=== PATIENT | male | born 1975 | race Two or more races ===

== ENCOUNTER 2021-11-02 08:24 | Outpatient (REF) | payer OTHER, SELFPAY ==
[2021-11-02 08:45] LABS: MANUAL DIFF FLAG NO
[2021-11-02 09:00] LABS: Basophils Absolute Auto 0.1 X10*3/uL (0.0-0.2); Basophils Percent Auto 0.7 % (0-2); Eosinophils Absolute Auto 0.1 X10*3/uL (0.0-0.4); Eosinophils Percent Auto 1.9 % (0-4); Hematocrit 42.4 % (42.0-52.0); Hemoglobin 13.4 g/dl (14.0-18.0); Imm Gran Abs Auto 0.02 X10*3/uL (0.00-0.03); Imm Gran Pct Auto 0.3 % (0.0-0.4); Lymphocytes Percent Auto 29.3 % (20-40); Mean Corpuscular HGB Conc 31.6 g/dl (31.0-36.0); Mean Corpuscular Hemoglobin 26.5 pg (27.0-33.0); Mean Corpuscular Volume 83.8 fL (80.0-98.0); Mean Platelet Volume 9.8 fL (9.4-12.4); Monocytes Absolute Auto 0.8 X10*3/uL (0.1-1.2); Monocytes Percent Auto 12.1 % (2-11); Neutrophils Absolute Auto 3.9 x10*3/uL (2.0-8.3); Neutrophils Percent Auto 55.7 % (45-73); Platelet Count 234 X10*3/uL (160-400); Red Blood Count 5.06 X10*6/uL (4.60-5.80)
[2021-11-02 09:33] LABS: Alanine Aminotransferase 37 U/L (0-40); Albumin Level 4.7 g/dL (3.5-5.0); Alkaline Phosphatase 77 U/L (39-117); Anion Gap 14 (12-20); Aspartate Amino Transferase 21 U/L (5-37); Bilirubin Total 1.5 mg/dL (0.0-1.0); Blood Urea Nitrogen 17 mg/dL (9-16); Calcium 9.6 mg/dL (8.4-10.2); Carbon Dioxide 27 mmol/L (22-29); Chloride 103 mmol/L (96-108); Cholesterol 204 mg/dL; Estimated Glomerular Filt Rate > 60; Glucose Fasting 97 mg/dL (60-99); HDL Cholesterol 36 mg/dL; LDL Cholesterol Calculated 133 mg/dl; Potassium 4.3 mmol/L (3.3-5.1); Sodium 140 mmol/L (135-145); Total Protein 7.9 g/dL (6.5-8.0); Triglycerides 178 mg/dL
[2021-11-02 09:58] LABS: TSH reflex Free T4 1.93 uIU/mL (0.32-4.0); Vitamin D 25-OH Total 19.2 ng/mL (>30)
== END 2021-11-02 08:25 | disposition home or self-care (01) ==
LOC: HO.LAB 08:24
PROVIDERS: PCP Internal Medicine; Visit Provider Internal Medicine
DX: Z00.00 Encounter for general adult medical examination without abnormal findings (principal); E55.9 Vitamin D deficiency, unspecified
CPT/HCPCS: 36415; 80053; 80061; 82306; 84443; 85025

== ENCOUNTER 2021-11-29 11:36 | Outpatient (REF) | payer OTHER, SELFPAY ==
--- NOTE | ~2021-11-29 | US_ITS ---
EXAMINATION: US THYROID CLINICAL INFORMATION: Nontoxic single thyroid nodule. COMPARISON: None TECHNIQUE: Linear transducer grayscale and color Doppler examination with attention to the region of the thyroid. FINDINGS: SIZE: Measurements of the thyroid lobes and nodules are given in sagittal, anteroposterior and transverse dimensions respectively. Right Thyroid Lobe: 3.5 x 1.2 x 1.6 cm, volume 3.5 mL. Parenchyma: The gland echotexture is homogeneous. Thyroid vascularity is normal. Left Thyroid Lobe: 3.2 x 1.2 x 1.7 cm, volume 3.4 mL. Parenchyma: The gland echotexture is homogeneous. Thyroid vascularity is normal. Isthmus: 0.3 cm in maximum AP dimension. Estimated total number of nodules greater than or equal to 1 cm: 0. [place] nodules are described as follows: 1. Location: Right superior. Size: 0.2 x 0.2 x 0.1 cm, volume 0.003 mL. Nodule characteristics: Composition: Mixed cystic and solid (1). Echogenicity: Isoechoic (1). Shape: Not taller than wide (0). Margins: Smooth (0). Echogenic Foci: None (0). ACR TI-RADS total points: 2 ACR TI-RADS category: 2 NODES: No lymphadenopathy is seen in the tissue surrounding the thyroid gland. US/US thyroid IMPRESSION: Small thyroid gland. Small right thyroid nodule. ACR TI-RADS RECOMMENDATION REFERENCE: Ultrasound-guided fine-needle aspiration, followup ultrasound, no further follow up. * TR1 (0 point) and TR 2 (2 points): No FNA or follow up * TR3 (3 points): FNA if more than or equal to 2.5 cm in maximum dimension, followup ultrasound in 1, 3 and 5 years if 1.5 to 2.4 cm in maximum dimension. * TR4 (4-6 points): FNA if more than or equal to 1.5 cm in maximum dimension, followup ultrasound in 1, 2, 3 and 5 years if 1 to 1.4 cm in maximum dimension. * TR5 (more than or equal to 7 points): FNA if more than or equal to 1 cm in maximum dimension, followup ultrasound every year for 5 years if 0.5 to 0.9 cm in maximum dimension. * TR3, TR4 or TR5 nodules that are below the size threshold for follow up receive no follow up.
== END 2021-11-29 11:37 | disposition home or self-care (01) ==
LOC: HO.US 11:36
PROVIDERS: Visit Provider Internal Medicine
DX: E04.1 Nontoxic single thyroid nodule (principal)
CPT/HCPCS: 76536

== ENCOUNTER 2022-09-09 11:34 | Outpatient (REF) | payer OTHER, SELFPAY ==
[2022-09-09 11:44] LABS: MANUAL DIFF FLAG NO
[2022-09-09 12:17] LABS: Basophils Percent Auto 0.4 % (0-2); Eosinophils Absolute Auto 0.1 X10*3/uL (0.0-0.4); Eosinophils Percent Auto 1.5 % (0-4); Hematocrit 46.3 % (42.0-52.0); Hemoglobin 14.7 g/dl (14.0-18.0); Imm Gran Abs Auto 0.03 X10*3/uL (0.00-0.03); Imm Gran Pct Auto 0.4 % (0.0-0.4); Lymphocytes Absolute Auto 1.9 X10*3/uL (1.2-4.9); Lymphocytes Percent Auto 28.2 % (20-40); Mean Corpuscular HGB Conc 31.7 g/dl (31.0-36.0); Mean Corpuscular Hemoglobin 26.7 pg (27.0-33.0); Mean Platelet Volume 10.2 fL (9.4-12.4); Monocytes Absolute Auto 0.7 X10*3/uL (0.1-1.2); Monocytes Percent Auto 10.6 % (2-11); Neutrophils Percent Auto 58.9 % (45-73); Platelet Count 230 X10*3/uL (160-400); Red Blood Count 5.51 X10*6/uL (4.60-5.80); Red Cell Distribution Width 13.9 % (11.0-16.0); White Blood Count 6.9 X10*3/uL (4.8-10.8)
[2022-09-09 12:52] LABS: Alanine Aminotransferase 30 U/L (0-40); Albumin Level 4.8 g/dL (3.5-5.0); Alkaline Phosphatase 79 U/L (39-117); Anion Gap 10 (12-20); Aspartate Amino Transferase 20 U/L (5-37); Bilirubin Total 1.4 mg/dL (0.0-1.0); Blood Urea Nitrogen 19 mg/dL (9-16); Calcium 10.4 mg/dL (8.4-10.2); Carbon Dioxide 29 mmol/L (22-29); Chloride 105 mmol/L (96-108); Cholesterol 195 mg/dL; Estimated Glomerular Filt Rate > 60; Glucose Fasting 96 mg/dL (60-99); HDL Cholesterol 36 mg/dL; LDL Cholesterol Calculated 125 mg/dl; Sodium 139 mmol/L (135-145); Total Protein 8.4 g/dL (6.5-8.0); Triglycerides 172 mg/dL
[2022-09-09 13:09] LABS: TSH reflex Free T4 1.51 uIU/mL (0.32-4.0); Vitamin D 25-OH Total 40.7 ng/mL (>30)
== END 2022-09-09 11:35 | disposition home or self-care (01) ==
LOC: HO.LAB 11:34
PROVIDERS: PCP Internal Medicine; Visit Provider Internal Medicine
DX: Z00.00 Encounter for general adult medical examination without abnormal findings (principal); E55.9 Vitamin D deficiency, unspecified; E04.1 Nontoxic single thyroid nodule; E78.2 Mixed hyperlipidemia
CPT/HCPCS: 36415; 80053; 80061; 82306; 84443; 85025

== ENCOUNTER 2022-09-12 12:35 | Outpatient (REF) | payer OTHER, SELFPAY ==
[2022-09-12 13:18] LABS: Appearance Urine Turbid; Color Urine Yellow; Glucose Urine UA Negative (Negative); Leukocyte Esterase Urine Negative (Negative); Nitrite Urine Negative (Negative); PH 5.5 (5.0-9.0); Specific Gravity - Urine 1.025 (1.005-1.025); Urine Blood Negative (Negative); Urine Ketones Negative (Negative); Urine Protein Negative (Neg-Trace)
== END 2022-09-12 12:36 | disposition home or self-care (01) ==
LOC: HO.LNP 12:35
PROVIDERS: Visit Provider Internal Medicine
DX: Z00.00 Encounter for general adult medical examination without abnormal findings (principal); R30.0 Dysuria
CPT/HCPCS: 81003

== ENCOUNTER → 2022-12-30 08:30 | Outpatient (BNVA) | payer OTHER, SELFPAY | PROVIDERS: PCP Internal Medicine; Visit Provider Nurse Practitioner Family ==

== ENCOUNTER 2023-03-17 10:27 | Outpatient (AMB) | payer OTHER, SELFPAY ==
[2023-03-17 10:30] VITALS: BP 140/86; PULSE 67; O2SAT 97; BMI 27.4
--- NOTE | 2023-03-17 10:30 | A.OFFPC_ITS ---
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 Accompanied by: Self / Same As Patient Allergies No Known Drug Allergies Allergy (Unknown, Verified 03/17/23 11:28) Unknown Medication List - Last Reconciled 03/17/23 by Paul Floyd MD bisacodyl (Dulcolax (bisacodyl)) 10 mg (2 x 5 mg) PO ONCE 1 day cholecalciferol (vitamin D3) 25 mcg PO DAILY 90 days polyethylene glycol 3350 (Miralax) 238 grams PO ONCE Tobacco use date assessed: 03/17/23 Dental Screening Dental Screen Date: 03/17/23 Did you have a dental visit in the last 12 months?: Yes Did you have a dental problem in the last 6 months where you did not have access to dental care?: No Was dental information given to patient?: Patient has dentist HPI 6 month f/u HPI Details Patient comes in today for his follow up visit States that he feels okay He denies any headaches or dizziness Denies any chest pains, no SOB No nausea/vomiting, no abdominal pain No change in bowel habits noted States that he is scheduled for his screening colonoscopy on 05/08/2023 Would like to know how he did on his labs [facility] Medical History Mixed hyperlipidemia Vitamin D deficiency Surgical History No pertinent past surgical history Family History Father No problems noted. Mother Diabetes Social History Housing: Apartment Alcohol intake: never Patient Tobacco Use Status: Never used Tobacco e-Cigarette/Vaping Use: Never Used Second Hand Smoke Exposure: No service: No Current occupational status: disabled Cognitive needs: No Hearing needs: No Vision needs: Yes Questionnaire PHQ-9 Over the last 2 weeks, how often have you been bothered by any of the following problems? 1. Little interest or pleasure in doing things: not at all 2. Feeling down, depressed, or hopeless: not at all 3. Trouble falling or staying asleep, or sleeping too much: not at all 4. Feeling tired or having little energy: not at all 5. Poor appetite or overeating: not at all 6. Feeling bad about yourself - or that you are a failure or have let yourself or your family down: not at all 7. Trouble concentrating on things, such as reading the newspaper or watching television: not at all 8. Moving or speaking so slowly that other people could have noticed. Or the opposite - being so fidgety or restless that you have been moving around a lot more than usual: not at all 9. Thoughts that you would be better off or of hurting yourself in some way: not at all Total score: 0 Depression Screening Interpretation: Negative Depression Screening Done: Yes 85209 - PHQ-9 Billing: Yes Source: Developed by Drs. Renaldo Schuster, Katy Tobin, Dominic Monique and colleagues, with an educational henrique from [employer]. Thrive Questionnaire Date Thrive assessed: 03/17/23 I am a: Patient What is your living situation today?: I have a steady place to live Within the past 12 months, did the food you bought not last and you didn't have the money to get more?: Never true Within the past 12 months, did you worry whether your food would run out before you got money to buy more?: Never true Do you have trouble paying for medicines?: No Do you have trouble getting transportation to medical appointments?: No Do you have trouble paying your heating and electricity bill?: No Do you have trouble taking care of your child, family member or friend?: No Do you have trouble with day-to-day activities such as bathing, preparing meals, shopping, managing finances, etc.?: No Are you currently unemployed and looking for a job?: No Are you interested in more education?: No Please select the resources that you would like help with: None Currently or been in a relationship where the following occur: no concerns reported AUDIT C Alcohol Use Questionnaire (AUDIT-C) 1. How often do you have a drink containing alcohol?: Never 3. How often do you have six or more drinks on one occasion?: Never Total Score: 0 Score Reviewed/Action Taken: Yes ALLNA-7 AMB Questionnaire ALLAN-7 Date ALLAN - 7 assessed: 03/17/23 Feeling nervous, anxious, or on edge: 0 = Not at all Not being able to stop or control worryin = Not at all Worrying too much about different things: 0 = Not at all Trouble relaxin = Not at all Being so restless that it is hard to sit still: 0 = Not at all Becoming easily annoyed or irritable: 0 = Not at all Feeling afraid as if something awful might happen: 0 = Not at all Total ALLAN-7 score (0-4 normal; 5-9 mild; 10-14 moderate; 15-21 severe): 0 Source: Developed by Drs. Renaldo Schuster, Katy Tobin, Dominic Monique and colleagues, with an educational henrique from [employer]. Review of Systems Const Denies chills, Denies fatigue, Denies fever(s) and Denies headache(s) ENT Denies dysphagia, Denies dizziness, Denies otalgia, Denies headache(s), Denies neck pain, Denies odynophagia and Denies sore throat Card Denies chest pain, Denies palpitations and Denies dyspnea Resp Denies cough and Denies dyspnea GI Denies abdominal pain, Denies constipation, Denies dysphagia, Denies heartburn, Denies diarrhea, Denies nausea, Denies odynophagia and Denies vomiting Denies dysuria, Denies nocturia and Denies urinary frequency Musc Denies neck pain Skin/Breast Denies rash Neuro Denies dizziness and Denies headache(s) Endo Denies fatigue and Denies palpitations Physical exam (Primary Care) Vital Signs: Last Vital Signs Pulse 67 03/17/23 10:30 BP 140/86 H 03/17/23 10:30 Pulse Ox 97 03/17/23 10:30 Oxygen Delivery Method Room Air 03/17/23 10:30 BMI result Body Mass Index 27.4 Tobacco/Smoking Status: Tobacco use Status Tobacco use date assessed 03/17/23 03/17/23 10:35 Patient Tobacco Use Status Never used Tobacco 03/17/23 10:35 e-Cigarette/Vaping Use Never Used 03/17/23 10:35 PHQ-9: PHQ-9 Score PHQ-9: Total score 0 03/17/23 10:35 Depression Screening Interpretation: Negative Thrive Assessment: Date of Thrive Assessment Date Thrive assessed 03/17/23 03/17/23 10:35 Currently or been in a relationship where the following occur: no concerns reported Const General: no acute distress and alert HENMT Ears: TM's normal bilaterally and EAC's normal Neck Neck: Yes no lymphadenopathy and Yes supple Resp Auscultation: clear to auscultation bilaterally, no rales and no wheezes Cardio Rate: regular rate Rhythm: regular rhythm Heart sounds: no murmurs GI Palpation (GI): Soft to palpation, nontender and No hepatosplenomegaly present Extrem General: Yes no clubbing, cyanosis or edema Results Reviewed Results Reviewed: Laboratory Tests 09/09/22 09/12/22 11:42 09:10 WBC 6.9 Hgb 14.7 Hct 46.3 Plt Count 230 Sodium 139 Potassium 5.0 Creatinine 1.10 Estimated GFR > 60 Fasting Glucose 96 Calcium 10.4 H D Total Bilirubin 1.4 H AST 20 ALT 30 Triglycerides 172 Cholesterol 195 LDL Cholesterol, Calc 125 HDL Cholesterol 36 25-OH Vitamin D Total 40.7 TSH 1.51 Ur Specific [place] 1.025 Urine Protein Negative Urine Glucose (UA) Negative Urine Blood Negative Assessment and Plan Assessment & Plan (1) Mixed hyperlipidemia: Code(s): E78.2 - Mixed hyperlipidemia Plan: Results of his labs done back in September 2022 reviewed and discussed with patient Reinforced low cholesterol diet Will recheck his labs and fasting lipids in 6 months for follow up (2) Vitamin D deficiency: Code(s): E55.9 - Vitamin D deficiency, unspecified Plan: Continue Vitamin D3 1000 units QD (3) Elevated blood pressure reading: Code(s): R03.0 - Elevated blood-pressure reading, without diagnosis of hypertension Plan: Most likely situational Repeat blood pressure during his office visit today came back normal at 110/86 mm Patient is advised to check his blood pressure every now and then to ensure that it stays normal Discussed also low sodium diet to help keep his BP in check (4) Right thyroid nodule: Code(s): E04.1 - Nontoxic single thyroid nodule Plan: Thyroid US done in November 2021 showed (+) small right thyroid nodule with no abnormalities TFTs were normal back then and were again normal on his labs done in September 2022 Will consider repeat thyroid US if nodule increases in size and becomes more palpable (5) Overweight (BMI 25.0-29.9): Code(s): E66.3 - Overweight Plan: Reinforced diet/exercise as tolerated/lose weight Plan To return in 6 months for his next annual physical examination Orders: Orders Complete Blood Count Auto Diff 6 Months Z00.00 - Encounter for general adult medical examination without abnormal findings TSH reflex Free T4 6 Months E78.00 - Pure hypercholesterolemia, unspecified UA CC w/rflx Micro + Cult 6 Months R30.0 - Dysuria Comprehensive [place]. Panel Fast 6 Months E78.00 - Pure hypercholesterolemia, unspecified, Z00.00 - Encounter for general adult medical examination without abnormal findings Lipid Panel 6 Months E78.2 - Mixed hyperlipidemia, Z00.00 - Encounter for general adult medical examination without abnormal findings Vitamin D 25-OH Total 6 Months E55.9 - Vitamin D deficiency, unspecified Coding Level of Care Code Est Pt Level 4 (82001) Diagnoses Mixed hyperlipidemia E78.2 Vitamin D deficiency E55.9 Elevated blood pressure reading R03.0 Right thyroid nodule E04.1 Overweight (BMI 25.0-29.9) E66.3
[2023-03-17 11:29] VITALS: BP 110/86
== END 2023-03-17 11:30 | disposition home or self-care (01) ==
PROVIDERS: PCP Internal Medicine; Visit Provider Internal Medicine
DX: E78.2 Mixed hyperlipidemia (principal); E55.9 Vitamin D deficiency, unspecified; R03.0 Elevated blood-pressure reading, without diagnosis of hypertension; E04.1 Nontoxic single thyroid nodule; E66.3 Overweight
CPT/HCPCS: 99214

== ENCOUNTER 2023-05-08 07:34 | Day surgery (SDC) | payer OTHER, SELFPAY ==
[2023-05-04 12:04] VITALS: BMI 26.3
--- NOTE | 2023-05-05 10:35 | P.CONAN_ITS ---
Documented by User: Caterina Ramsay NP 05/05/23 10:36 HPI - Anesthesia Eval Consult details Narrative: 48yo M for Colonoscopy PMFSH Active Problems Active Problems: All Active Problems (Updated 03/17/23 @ 11:37 by Paul Floyd MD) Elevated blood pressure reading (Acute) Colon cancer screening (Acute) Ear discomfort (Acute) Mixed hyperlipidemia (Acute) Vitamin D deficiency (Acute) Pure hypercholesterolemia (Acute) Overweight (BMI 25.0-29.9) (Acute) Annual physical exam (Acute) Right thyroid nodule (Acute) Past Medical History Medical History Mixed hyperlipidemia Vitamin D deficiency Family History Family History Father No problems noted. Mother Diabetes Surgical History Surgical History No pertinent past surgical history Social History Social History Housing: Apartment Alcohol intake: never Patient Tobacco Use Status: Never used Tobacco e-Cigarette/Vaping Use: Never Used Second Hand Smoke Exposure: No Use of substances other than those prescribed or required for medical reasons: No Are you DNR?: No Advance Directives: No Advance Directives Information Provided: Yes service: No Current occupational status: disabled Cognitive needs: No Hearing needs: No Vision needs: Yes Meds Allergies Allergy/AdvReac Type Severity Reaction Status Date / Time No Known Drug Allergies Allergy Unknown Unknown Verified 05/08/23 09:04 Home Medications Medication Instructions Recorded Confirmed Last Taken Type No Known Home Meds 05/08/23 05/08/23 Unknown History Exam Height,Weight and Vital Signs: Height 5 ft 10 in Weight 83.007 kg Assessment and Plan Assessment Anesthesia Assessment: Chart Reviewed Documented by User: Holley Lopez MD 05/08/23 09:09 [facility] Past Medical History Medical History Mixed hyperlipidemia Vitamin D deficiency Family History Family History Father No problems noted. Mother Diabetes Family history of problems with anesthesia: No Surgical History Surgical History No pertinent past surgical history History of Problems with Anesthesia: No Social History Social History Housing: Apartment Alcohol intake: never Patient Tobacco Use Status: Never used Tobacco e-Cigarette/Vaping Use: Never Used Second Hand Smoke Exposure: No Use of substances other than those prescribed or required for medical reasons: No Are you DNR?: No Advance Directives: No Advance Directives Information Provided: Yes service: No Current occupational status: disabled Cognitive needs: No Hearing needs: No Vision needs: Yes Meds Allergies Allergy/AdvReac Type Severity Reaction Status Date / Time No Known Drug Allergies Allergy Unknown Unknown Verified 05/08/23 09:04 Home Medications Medication Instructions Recorded Confirmed Last Taken Type No Known Home Meds 05/08/23 05/08/23 Unknown History Exam Airway Mallampati Class: II TM Dist: >3cm Neck ROM: Full Heart: rrr Lungs: cta Assessment and Plan Assessment Anesthesia Assessment: Anesthesia Plan Discussed Final Anesthetic Review Family History of Problems with Anesthesia: No History of Problems with Anesthesia: No NPO: Yes ASA Class: II Final Preanesthetic Review: No Changes in Pt Med Stat, Meds/Allgs Chart Reviewed and Consent Obtained/Reviewed Patient Risk: Intermediate Procedure Risk: Intermediate Anesthetic Plan Anesthetic Plan: MAC: Disposition: Standard PACU
--- NOTE | 2023-05-08 08:45 | MHC.SHP ---
Pre-Procedural Eval Section A - 24 Hr Update-Section A only Date of Service: 05/08/23 The patient is an INPATIENT: No The patient has been examined within 24 hours of the surgical procedure. The History & Physical has been completed within 30 days and I have reviewed it.: No Section B - Complete if H&P > 30 days Chief Complaint: Colon cancer screening Relevant Family History (Specify if Yes): No Relevant Social History: None Present Medications: see Short Stay Collaborative assessment Medical History: No relevant PMH (Mixed hyperlipidemia Vitamin D deficiency) History of Previous Operations: No relevant previous surgery Allergies: Allergies Allergy/AdvReac Type Severity Reaction Status Date / Time No Known Drug Allergies Allergy Unknown Unknown Verified 03/17/23 11:28 Review of Systems Sugical H&P ROS: Negative: Constitution, Cardiovascular and Gastrointestinal Exam Surgical H&P Exam: Normal: Heart, Normal: Lungs, Normal: Extremities and Normal: Abdomen Plan Diagnosis/Plan: Unchanged I have reviewed the history and physical and performed a pertinent physical examination on my patient. No changes have occurred unless specified. Time Spent With Patient Time: Total time managing care of this patient today ____ minutes.
[2023-05-08 09:03] VITALS: BP 133/86; PULSE 58; RESP 16; TEMP 36.4; O2SAT 100
[2023-05-08 09:05] VITALS: BMI 27.3
[2023-05-08] MEDS: Lactated Ringers 1,000 ML 100 ML IVCONT (09:05)
--- NOTE | 2023-05-08 09:16 | W.PM.OPN ---
Operative Note Operative Note Date of Service: 05/08/23 Narrative: COLONOSCOPY TILL CECUM WITH SNARE POLYPECTOMY Pre-op diagnosis: Colon cancer screening (1st colonoscopy) Post-op diagnosis:? Colon polyp, diverticulosis, hemorrhoid Endoscopist:? Ricky Whiteside MD Anesthesia:?MAC Consent: Indications for the procedure and potential complications of bleeding, perforation, reaction to medications and missed diagnosis were discussed with the patient and informed consent was obtained. Instrument: Olympus CF H 190 L variable stiffness adult colonoscope Monitoring: Vital signs and clinical assessment, intermittent blood pressure monitoring, continuous EKG monitoring, Pulse oximetry and Carbon Dioxide monitoring were done throughout the procedure. Please see anesthesia flowsheet. Colon withdrawl time was 15 minutes. Procedure: The patient was placed in the left lateral decubitis position and pre-procedure medications were administered. After a digital rectal examination of the ano-rectum, the video colonoscope was inserted into the rectum and advanced through the colon to the cecum. The colonoscope was slowly withdrawn in a retrograde panoramic fashion and the colon mucosa was carefully examined including a retroflexed view of the rectum. Findings and interventions are described below. Procedure Difficulty: Without difficulty Findings: Terminal Ileum: Not evaluated Cecum: Normal Ascending Colon: Normal Transverse Colon: Normal Descending Colon: Normal Sigmoid Colon: A 10-12 mm sessile polyp at 30 cms - removed with a hot snare. Moderate diverticulosis Rectum: Normal Ano-rectum: Small internal hemorrhoids Colon preparation: Good after some irrigation [place] Bowel Preparation Scale Right colon; 2 Transverse colon: 3 Left colon; 2 (0 = Unprepared colon segment with mucosa not seen due to solid stool that cannot be cleared. 1 = Portion of mucosa of the colon segment seen, but other areas of the colon segment not well seen due to staining, residual stool and/or opaque liquid. 2 = Minor amount of residual staining, small fragments of stool and/or opaque liquid, but mucosa of colon segment seen well. 3 = Entire mucosa of colon segment seen well with no residual staining, small fragments of stool or opaque liquid) Impression and Post Procedure Diagnosis: Colonoscopy Findings: One medium sized polyp removed Moderate diverticulosis seen in the sigmoid colon Small hemorrhoids on retroflexed exam. Plan: Await pathology results Patient has an appointment on 05/23/23 in the [facility] with Saima Ramey FNP-BC . Repeat Colonoscopy interval based on path results - in 3 years if polyp is adenomatous and 10 years if polyps are hyperplastic. Colon polyps and diverticulosis handouts were given in the discharge area
[2023-05-08 09:44] VITALS: BP 119/72; PULSE 66; RESP 16; TEMP 36.1; O2SAT 98
[2023-05-08 09:59] VITALS: BP 111/68; PULSE 81; RESP 16; TEMP 36.6; O2SAT 99
== END 2023-05-08 10:17 | disposition home or self-care (01) ==
PROVIDERS: PCP Internal Medicine; Visit Provider Internal Medicine Gastroenterology
PROC: 0DJD8ZZ Inspection of Lower Intestinal Tract, Via Natural or Artificial Opening Endoscopic (ICD-10-PCS; CPT 45378; principal; 2023-05-08 09:20)
DX: Z12.11 Encounter for screening for malignant neoplasm of colon (principal); D12.5 Benign neoplasm of sigmoid colon; K57.30 Diverticulosis of large intestine without perforation or abscess without bleeding; K64.8 Other hemorrhoids; E78.2 Mixed hyperlipidemia; E55.9 Vitamin D deficiency, unspecified
CPT/HCPCS: 45385; 88305; J2704

== ENCOUNTER → 2023-05-08 07:34 | Outpatient (BNV) | payer OTHER, SELFPAY | PROVIDERS: PCP Internal Medicine; Visit Provider Internal Medicine Gastroenterology | DX: Z12.11 Encounter for screening for malignant neoplasm of colon (principal); D12.5 Benign neoplasm of sigmoid colon; K57.30 Diverticulosis of large intestine without perforation or abscess without bleeding; K64.8 Other hemorrhoids | CPT/HCPCS: 45385 ==

== ENCOUNTER 2023-05-23 11:27 | Outpatient (AMB) | payer OTHER, SELFPAY ==
[2023-05-23 11:30] VITALS: BP 130/77; PULSE 66; BMI 26.5
--- NOTE | 2023-05-23 11:30 | A.OFFVIS_ITS ---
Intake Vital Signs 05/23/23 11:30 Height 5 ft 10 in Weight 185 lb BMI 26.5 BP 130/77 Blood Pressure Location Lt brachial Position Sitting Pulse 66 Pulse Source Monitor Intake Visit Reasons: S/p colon Intake Note: Patient states no GI questions at the moment everything is going well. [employer]ker Required: No Accompanied by: Mother Allergies No Known Drug Allergies Allergy (Unknown, Verified 05/23/23 11:33) Unknown HPI S/p colon HPI Details LAST VISIT Colon cancer screening Patient denies any GI, cardiac or respiratory symptoms.? Denies any anesthesia in the past.? Denies any history of sleep apnea.? No history infectious diseases in the past or present.? Not on any anticoagulation therapy.? No family or personal history of colon cancer or polyps.? Patient denies melena, hematochezia, unintentional weight loss or ribbon like stools.? Discussed at length the pre-procedure,? prep, diet & medications as well as what to expect prior, during and after the procedure.?? Stressed the importance of good bowel prep. ?Recommended the use of Vaseline or Calmoseptine OTC & baby wipes with bowel movements to promote comfort.? ?Patient verbalizes understanding and agrees to plan of care.? She was given the opportunity to ask questions and all questions answered.? We will see her after the procedure.? Plan Medications New bisacodyl (Dulcolax (bisacodyl)) take 2 tabs at noon the day before your colonoscopy 10 mg (2 x 5 mg) PO ONCE 2 tabs 0RF 1 da y Z12.11 polyethylene glycol 3350 (Miralax) As directed by gastroenterology department at [facility] 238 grams PO ONCE 238 grams 0RF Z12.11 COLONOSCOPY Findings: Terminal Ileum: Not evaluated Cecum: Normal Ascending Colon: Normal Transverse Colon: Normal Descending Colon: Normal Sigmoid Colon: A 10-12 mm sessile polyp at 30 cms - removed with a hot snare. Moderate diverticulosis Rectum: Normal Ano-rectum: Small internal hemorrhoids Impression and Post Procedure Diagnosis: Colonoscopy Findings: One medium sized polyp removed Moderate diverticulosis seen in the sigmoid colon Small hemorrhoids on retroflexed exam. Plan: Repeat Colonoscopy interval based on path results - in 3 years if polyp is adenomatous and 10 years if polyps are hyperplastic. PATHOLOGY RESULTS Diagnosis Colon, sigmoid, polyp: Tubular adenoma; negative for high-grade dysplasia and carcinoma TODAY'S VISIT: Patient is here today for follow-up and to discuss colonoscopy results. Patient denies any ill effects from the prep, anesthesia or procedure itself. Patient reports that he has been feeling well and moving his bowels without any issues. Patient denies any GI concerning symptoms. Colonoscopy results discussed patient. Patient was diagnosed with diverticulosis of sigmoid colon. One medium-sized tubular adenoma found in sigmoid colon without high-grade dysplasia or carcinoma. Patient denies any melena, hematochezia, unintentional weight loss or ribbon like stools. Patient denies any dyspepsia, dysphagia or odynophagia. [facility] Medical History (Updated 05/23/23 @ 11:52 by Saima Ramey, [facility]) Tubular adenoma of colon Internal hemorrhoids without complication Diverticulosis Mixed hyperlipidemia Vitamin D deficiency Surgical History No pertinent past surgical history Family History Father No problems noted. Mother Diabetes Social History Housing: Apartment Alcohol intake: never Patient Tobacco Use Status: Never used Tobacco e-Cigarette/Vaping Use: Never Used Second Hand Smoke Exposure: No service: No Current occupational status: disabled Cognitive needs: No Hearing needs: No Vision needs: Yes Review of Systems Const Denies weight gain and Denies weight loss ENT Reports no additional complaints, Denies dysphagia and Denies odynophagia Card Reports no additional complaints Resp Reports no additional complaints GI Denies abdominal pain, Denies belching, Denies melena, Denies bloating, Denies change in bowel habits, Denies dysphagia, Denies excessive flatus, Denies dyspepsia, Denies heartburn, Denies diarrhea, Denies loose stools, Denies nausea, Denies odynophagia and Denies vomiting Reports no additional complaints Musc Reports no additional complaints Neuro Reports no additional complaints Psych Reports no additional complaints Endo Reports no additional complaints Physical Exam Vital Signs: Last Vital Signs Pulse 66 05/23/23 11:30 BP 130/77 05/23/23 11:30 BMI result Body Mass Index 26.5 Const General: healthy appearing, no acute distress and well developed Nutritional Appearance: well nourished Orientation/consciousness: patient oriented x3 Resp Effort & Inspection: normal respiratory effort, able to speak in complete sentences, no tracheal deviation and symmetric chest movement Auscultation: clear to auscultation bilaterally Cardio Rate: regular rate GI Inspection: Yes normal to inspection and No distended Palpation (GI): Soft to palpation, not firm, nontender and No hepatosplenomegaly present Auscultation: normal bowel sounds General: Yes no CVA tenderness Back/Spine/Pelvis Back: no CVA tenderness Skin General skin exam: elasticity normal, turgor normal and dry skin Neuro General: patient oriented x3 Psych Appearance: grossly normal Mental Status: mental status grossly normal Assessment & Plan Assessment & Plan (1) Diverticulosis: Code(s): K57.90 - Diverticulosis of intestine, part unspecified, without perforation or abscess without bleeding (2) Internal hemorrhoids without complication: Code(s): K64.8 - Other hemorrhoids (3) Tubular adenoma of colon: Code(s): D12.6 - Benign neoplasm of colon, unspecified (4) Status post colonoscopy: Code(s): Z98.890 - Other specified postprocedural states Plan One tubular adenoma without high-grade dysplasia or carcinoma found. Repeat colonoscopy in 3 years, sooner if clinically necessary. Patient will follow-up in our office on as needed basis. Denies any GI concerning symptoms at this time. Both patient and his mom are agreeable to plan of care and verbalizes understanding of instructions. They were given the opportunity to ask questions and all questions answered. Thank you for allowing me to participate in his care Coding Level of Care Code Est Pt Level 3 (85358) Diagnoses Diverticulosis K57.90 Internal hemorrhoids without complication K64.8 Tubular adenoma of colon D12.6 Status post colonoscopy Z98.890 Time Spent (min) 25 Comment 15 minutes spent with patient and additional 10 minutes spent reviewing his records
== END 2023-05-23 13:11 | disposition home or self-care (01) ==
PROVIDERS: PCP Internal Medicine; Visit Provider Nurse Practitioner Family
DX: K57.90 Diverticulosis of intestine, part unspecified, without perforation or abscess without bleeding (principal); K64.8 Other hemorrhoids; D12.6 Benign neoplasm of colon, unspecified; Z98.890 Other specified postprocedural states
CPT/HCPCS: 99213

== ENCOUNTER → 2023-05-23 11:27 | Outpatient (BNVA) | payer OTHER, SELFPAY | PROVIDERS: PCP Internal Medicine; Visit Provider Nurse Practitioner Family | DX: K57.90 Diverticulosis of intestine, part unspecified, without perforation or abscess without bleeding (principal); K64.8 Other hemorrhoids; D12.6 Benign neoplasm of colon, unspecified; Z98.890 Other specified postprocedural states | CPT/HCPCS: 99212 ==

== ENCOUNTER 2023-07-19 11:23 | Outpatient (REF) | payer OTHER, SELFPAY ==
[2023-07-19 11:54] LABS: MANUAL DIFF FLAG NO
[2023-07-19 12:21] LABS: Basophils Percent Auto 0.7 % (0-2); Eosinophils Absolute Auto 0.1 X10*3/uL (0.0-0.4); Eosinophils Percent Auto 1.7 % (0-4); Hematocrit 42.3 % (42.0-52.0); Hemoglobin 13.8 g/dl (14.0-18.0); Imm Gran Abs Auto 0.02 X10*3/uL (0.00-0.03); Imm Gran Pct Auto 0.3 % (0.0-0.4); Lymphocytes Absolute Auto 1.8 X10*3/uL (1.2-4.9); Lymphocytes Percent Auto 30.5 % (20-40); Mean Corpuscular HGB Conc 32.6 g/dl (31.0-36.0); Mean Corpuscular Hemoglobin 27.1 pg (27.0-33.0); Mean Corpuscular Volume 83.1 fL (80.0-98.0); Mean Platelet Volume 9.8 fL (9.4-12.4); Monocytes Absolute Auto 0.6 X10*3/uL (0.1-1.2); Monocytes Percent Auto 9.4 % (2-11); Neutrophils Absolute Auto 3.4 x10*3/uL (2.0-8.3); Neutrophils Percent Auto 57.4 % (45-73); Platelet Count 226 X10*3/uL (160-400); Red Blood Count 5.09 X10*6/uL (4.60-5.80); Red Cell Distribution Width 13.7 % (11.0-16.0)
[2023-07-19 12:52] LABS: Alanine Aminotransferase 34 U/L (0-40); Albumin Level 4.5 g/dL (3.5-5.0); Alkaline Phosphatase 124 U/L (39-117); Anion Gap 11 (12-20); Aspartate Amino Transferase 20 U/L (5-37); Bilirubin Total 0.9 mg/dL (0.0-1.0); Blood Urea Nitrogen 10 mg/dL (9-16); Calcium 9.7 mg/dL (8.4-10.2); Carbon Dioxide 28 mmol/L (22-29); Chloride 105 mmol/L (96-108); Cholesterol 185 mg/dL (<200); Estimated Glomerular Filt Rate > 60; Glucose Fasting 100 mg/dL (60-99); HDL Cholesterol 36 mg/dL (>40); LDL Cholesterol Calculated 114 mg/dL (<100); Potassium 4.5 mmol/L (3.3-5.1); Sodium 139 mmol/L (135-145); Total Protein 7.9 g/dL (6.5-8.0); Triglycerides 179 mg/dL (<150)
[2023-07-19 13:09] LABS: TSH reflex Free T4 1.42 uIU/mL (0.32-4.0); Vitamin D 25-OH Total 29.3 ng/mL (>30)
[2023-07-19 13:11] LABS: HBc Num1 0.14 S/CO (0.00-0.79); Hepatitis B Core Antibody Nonreactive (Nonreactive); Hepatitis B Surface Antigen Negative (Negative); ~Hepatitis B Surface Antibody REACTIVE (Nonreactive); ~Hepatitis C Antibody Nonreactive (Nonreactive)
== END 2023-07-19 11:24 | disposition home or self-care (01) ==
LOC: HO.LAB 11:23
PROVIDERS: PCP Internal Medicine; Visit Provider Internal Medicine
DX: Z00.00 Encounter for general adult medical examination without abnormal findings (principal); Z11.59 Encounter for screening for other viral diseases; E78.2 Mixed hyperlipidemia; E55.9 Vitamin D deficiency, unspecified; E78.00 Pure hypercholesterolemia, unspecified; Z72.89 Other problems related to lifestyle
CPT/HCPCS: 36415; 80053; 80061; 82306; 84443; 85025; 86704; 86706; 86803; 87340

== ENCOUNTER 2023-09-11 12:25 | Outpatient (AMB) | payer OTHER, SELFPAY ==
--- NOTE | 2023-09-11 13:23 | MHC.PC.OV ---
Vital Signs 09/11/23 13:25 Height 5 ft 10 in Weight 188 lb 2 oz BMI 27.0 BP 120/74 Blood Pressure Location Lt brachial Position Sitting Pulse 70 Pulse Source Pulse Oximeter Pulse Oximetry (%) 95 Oxygen Delivery Method Room Air Intake Visit Reasons: pe Intake Note: Patient is here today for a physical. Deburrer Strip Required: No Automation Tender: Not Required per policy Accompanied by: Self / Same As Patient Allergies No Known Drug Allergies Allergy (Unknown, Verified 09/11/23 14:09) Unknown Medication List - Last Reconciled 09/11/23 by Paul Floyd MD cholecalciferol (vitamin D3) (Vitamin D3) 25 mcg PO DAILY Tobacco use date assessed: 09/11/23 Dental Screening Dental Screen Date: 09/11/23 Did you have a dental visit in the last 12 months?: Yes Did you have a dental problem in the last 6 months where you did not have access to dental care?: No Was dental information given to patient?: Patient has dentist HPI pe HPI Details Patient comes in today for his annual physical examination States that he currently feels okay He denies any headaches or dizziness Denies any chest pains, no SOB No nausea/vomiting, no abdominal pain No change in bowel habits noted He denies any acute urinary symptoms He had his follow up labs done a couple of months ago - to discuss his results He had his screening colonoscopy done with Dr. Whiteside back in May 2023 - (+) tubular adenoma; was recommended to get a repeat colonoscopy done in 3 years [facility] Medical History Tubular adenoma of colon Internal hemorrhoids without complication Diverticulosis Mixed hyperlipidemia Vitamin D deficiency Surgical History (Updated 09/11/23 @ 13:27 by ZULEYKA [place]) Hx of colonoscopy Family History Father No problems noted. Mother Diabetes Social History Housing: Apartment Alcohol intake: never Patient Tobacco Use Status: Never used Tobacco e-Cigarette/Vaping Use: Never Used Second Hand Smoke Exposure: No service: No Current occupational status: disabled Cognitive needs: No Hearing needs: No Vision needs: Yes (Glasses) Questionnaire PHQ-9 Over the last 2 weeks, how often have you been bothered by any of the following problems? 1. Little interest or pleasure in doing things: not at all 2. Feeling down, depressed, or hopeless: not at all 3. Trouble falling or staying asleep, or sleeping too much: not at all 4. Feeling tired or having little energy: not at all 5. Poor appetite or overeating: not at all 6. Feeling bad about yourself - or that you are a failure or have let yourself or your family down: not at all 7. Trouble concentrating on things, such as reading the newspaper or watching television: not at all 8. Moving or speaking so slowly that other people could have noticed. Or the opposite - being so fidgety or restless that you have been moving around a lot more than usual: not at all 9. Thoughts that you would be better off or of hurting yourself in some way: not at all Total score: 0 Depression Screening Interpretation: Negative Depression Screening Done: Yes [id number] - PHQ-9 Billing: Yes Source: Developed by Drs. Renaldo Schuster, Katy Tobin, Dominic Monique and colleagues, with an educational henrique from [employer]. Thrive Questionnaire Date Thrive assessed: 09/11/23 I am a: Patient What is your living situation today?: I have a steady place to live Within the past 12 months, did the food you bought not last and you didn't have the money to get more?: Never true Within the past 12 months, did you worry whether your food would run out before you got money to buy more?: Never true Do you have trouble paying for medicines?: No Do you have trouble getting transportation to medical appointments?: No Do you have trouble paying your heating and electricity bill?: No Do you have trouble taking care of your child, family member or friend?: No Do you have trouble with day-to-day activities such as bathing, preparing meals, shopping, managing finances, etc.?: No Are you currently unemployed and looking for a job?: No Are you interested in more education?: No Currently or been in a relationship where the following occur: no concerns reported THRIVE Score: 0 AUDIT C Alcohol Use Questionnaire (AUDIT-C) 1. How often do you have a drink containing alcohol?: Never 3. How often do you have six or more drinks on one occasion?: Never Total Score: 0 Score Reviewed/Action Taken: Yes ALLAN-7 AMB Questionnaire ALLAN-7 Date ALLAN - 7 assessed: 09/11/23 Feeling nervous, anxious, or on edge: 0 = Not at all Not being able to stop or control worryin = Not at all Worrying too much about different things: 0 = Not at all Trouble relaxin = Not at all Being so restless that it is hard to sit still: 0 = Not at all Becoming easily annoyed or irritable: 0 = Not at all Feeling afraid as if something awful might happen: 0 = Not at all Total ALLAN-7 score (0-4 normal; 5-9 mild; 10-14 moderate; 15-21 severe): 0 Source: Developed by Drs. Renaldo Schuster, Katy Tobin, Dominic Monique and colleagues, with an educational henrique from [employer]. Review of Systems Const Denies chills, Denies fatigue, Denies fever(s), Denies headache(s), Denies malaise and Denies weakness Eyes Denies blurry vision, Denies change in vision, Denies irritation and Denies itchy eyes ENT Denies dysphagia, Denies dizziness, Denies otalgia, Denies headache(s), Denies nasal congestion, Denies neck pain, Denies odynophagia and Denies sore throat Card Denies chest pain, Denies rapid heart rate, Denies irregular heart rhythm, Denies palpitations and Denies dyspnea Resp Denies chest congestion, Denies cough, Denies dyspnea and Denies wheezing GI Denies abdominal pain, Denies bloating, Denies constipation, Denies dysphagia, Denies heartburn, Denies diarrhea, Denies nausea, Denies odynophagia and Denies vomiting Denies hematuria, Denies difficulty urinating, Denies dysuria, Denies urinary frequency and Denies urinary urgency Musc Denies back pain, Denies arthralgias, Denies joint swelling, Denies muscle weakness and Denies neck pain Skin/Breast Denies change in pigmentation, Denies lesions, Denies rash and Denies unusual bruising Neuro Denies dizziness, Denies headache(s), Denies paresthesias and Denies weakness Endo Denies fatigue and Denies palpitations Aller/Immun Denies itchy eyes and Denies wheezing Physical exam (Primary Care) Vital Signs: Last Vital Signs Pulse 70 09/11/23 13:25 BP 120/74 09/11/23 13:25 Pulse Ox 95 09/11/23 13:25 Oxygen Delivery Method Room Air 09/11/23 13:25 BMI result Body Mass Index 27.0 Tobacco/Smoking Status: Tobacco use Status Tobacco use date assessed 09/11/23 09/11/23 13:29 Patient Tobacco Use Status Never used Tobacco 09/11/23 13:29 e-Cigarette/Vaping Use Never Used 09/11/23 13:29 PHQ-9: PHQ-9 Score PHQ-9: Total score 0 09/11/23 14:10 Depression Screening Interpretation: Negative Thrive Assessment: Date of Thrive Assessment Date Thrive assessed 09/11/23 09/11/23 13:29 Currently or been in a relationship where the following occur: no concerns reported Const General: no acute distress, alert and awake Orientation/consciousness: patient oriented x3 HENMT Head: Yes normocephalic and Yes atraumatic Ears: external ears normal, TM's normal bilaterally and EAC's normal General nose exam: No nasal discharge present Face and sinus: Yes normal facial exam and Yes sinuses nontender Teeth and gingiva: dentition normal Throat: Yes posterior oropharynx normal and Yes tonsils normal (no TP congestion) Eyes Eyelids: Yes eyelids normal Conjunctivae: conjunctivae normal Pupils: Equal, round and reactive pupils present EOM: EOMs intact bilaterally Neck Neck: Yes no lymphadenopathy and Yes supple Thyroid: solitary palpable nodule on the right and nontender Resp Auscultation: clear to auscultation bilaterally, no rales and no wheezes Cardio Rate: regular rate Rhythm: regular rhythm Heart sounds: no murmurs GI Palpation (GI): Soft to palpation, nontender and No hepatosplenomegaly present Auscultation: normal bowel sounds General: Yes no CVA tenderness Back/Spine/Pelvis Back: no CVA tenderness Thoracic/Lumbar Spine: thoracic and lumbar spine normal to inspection Skin Lesions: no lesions Rashes: no rashes Neuro General: patient oriented x3, moves all extremities, no focal motor deficits and CN's II-XI intact bilaterally Cranial nerves: Yes Equal, round and reactive pupils present Cognition (Neuro): normal cognition Gait exam (Neuro): Normal gait present Extrem General: Yes no clubbing, cyanosis or edema Results Reviewed Results Reviewed: Laboratory Tests 09/12/22 07/19/23 09:10 11:53 WBC 6.0 Hgb 13.8 L Hct 42.3 Plt Count 226 Sodium 139 Potassium 4.5 Creatinine 1.01 Estimated GFR > 60 Fasting Glucose 100 H Calcium 9.7 D AST 20 ALT 34 Triglycerides 179 H Cholesterol 185 LDL Cholesterol, Calc 114 H HDL Cholesterol 36 L 25-OH Vitamin D Total 29.3 L TSH 1.42 Ur Specific [place] 1.025 Urine Protein Negative Urine Glucose (UA) Negative Urine Blood Negative Urine Nitrite Negative Ur Leukocyte Esterase Negative Hep Bs Antigen Negative Hep Bs Antibody REACTIVE Hep B Core Total Ab Nonreactive Hepatitis C Ab (EIA) Nonreactive Assessment and Plan Assessment & Plan (1) Annual physical exam: Code(s): Z00.00 - Encounter for general adult medical examination without abnormal findings Plan: Results of his labs done a couple of months ago reviewed and discussed with patient He had his screening colonoscopy done with Dr. Whiteside back in May 2023 - (+) tubular adenoma; was recommended to get a repeat colonoscopy done in 3 years (2) Mixed hyperlipidemia: Code(s): E78.2 - Mixed hyperlipidemia Plan: Reinforced low cholesterol diet Will recheck his labs and fasting lipids in 6 months for follow up (3) Vitamin D deficiency: Code(s): E55.9 - Vitamin D deficiency, unspecified Plan: Improving - continue Vitamin D3 1000 units QD (4) Elevated blood pressure reading: Code(s): R03.0 - Elevated blood-pressure reading, without diagnosis of hypertension Plan: Was most likely situational; his blood pressure in the office today is normal Patient is advised to check his blood pressure every now and then to ensure that it stays normal (5) Right thyroid nodule: Code(s): E04.1 - Nontoxic single thyroid nodule Plan: Thyroid US done in November 2021 showed (+) small right thyroid nodule with no abnormalities TFTs were normal back then and were again normal on his labs done in September 2022 and more recently a couple of months ago Will consider repeat thyroid US if nodule increases in size and becomes more palpable (6) Overweight (BMI 25.0-29.9): Code(s): E66.3 - Overweight Plan: Reinforced diet/exercise as tolerated/lose weight Plan Follow up in 6 months Orders: Orders Comprehensive [place]. Panel Fast 6 Months E78.00 - Pure hypercholesterolemia, unspecified Lipid Panel 6 Months E78.00 - Pure hypercholesterolemia, unspecified Coding Level of Care Code Est Pt Prev Care 40-64y(33540) Diagnoses Annual physical exam Z00.00 Mixed hyperlipidemia E78.2 Vitamin D deficiency E55.9 Elevated blood pressure reading R03.0 Right thyroid nodule E04.1 Overweight (BMI 25.0-29.9) E66.3
[2023-09-11 13:25] VITALS: BP 120/74; PULSE 70; O2SAT 95; BMI 27.0
== END 2023-09-11 14:18 | disposition home or self-care (01) ==
PROVIDERS: PCP Internal Medicine; Visit Provider Internal Medicine
DX: Z00.00 Encounter for general adult medical examination without abnormal findings (principal); E78.2 Mixed hyperlipidemia; E55.9 Vitamin D deficiency, unspecified; R03.0 Elevated blood-pressure reading, without diagnosis of hypertension; E04.1 Nontoxic single thyroid nodule; E66.3 Overweight
CPT/HCPCS: 99396

== ENCOUNTER 2024-03-12 12:30 | Outpatient (AMB) | payer OTHER, SELFPAY ==
[2024-03-12 12:38] VITALS: BP 120/76; PULSE 71; O2SAT 96; BMI 28.7
--- NOTE | 2024-03-12 12:38 | A.OFFPC_ITS ---
Vital Signs 03/12/24 12:38 Height 5 ft 10 in Weight 200 lb BMI 28.7 BP 120/76 Blood Pressure Location Lt brachial Position Sitting Pulse 71 Pulse Source Pulse Oximeter Pulse Oximetry (%) 96 Oxygen Delivery Method Room Air Intake Visit Reasons: 6 Month F/U [employer] Required: No Accompanied by: Self / Same As Patient Allergies No Known Drug Allergies Allergy (Unknown, Verified 03/12/24 12:51) Unknown Medication List - Last Reconciled 03/17/24 by Paul Floyd MD cholecalciferol (vitamin D3) (Vitamin D3) 25 mcg PO DAILY Tobacco use date assessed: 03/12/24 Dental Screening Dental Screen Date: 03/12/24 Did you have a dental visit in the last 12 months?: Yes Did you have a dental problem in the last 6 months where you did not have access to dental care?: No Was dental information given to patient?: Patient has dentist HPI 6 Month F/U HPI Details Patient comes in today for his follow-up visit States that he currently feels okay He denies any headaches or dizziness Denies any chest pains, no SOB No nausea/vomiting, no abdominal pain No change in bowel habits noted He was not able to get his follow-up labs done prior to his appointment today - states that he will try to get them done tomorrow morning [facility] Medical History Tubular adenoma of colon Internal hemorrhoids without complication Diverticulosis Mixed hyperlipidemia Vitamin D deficiency Surgical History Hx of colonoscopy Family History Father No problems noted. Mother Diabetes Social History Housing: Apartment Alcohol intake: never Patient Tobacco Use Status: Never used Tobacco e-Cigarette/Vaping Use: Never Used Second Hand Smoke Exposure: No service: No Current occupational status: disabled Cognitive needs: No Hearing needs: No Vision needs: Yes (Glasses) Questionnaire PHQ-9 Over the last 2 weeks, how often have you been bothered by any of the following problems? 1. Little interest or pleasure in doing things: not at all 2. Feeling down, depressed, or hopeless: not at all 3. Trouble falling or staying asleep, or sleeping too much: not at all 4. Feeling tired or having little energy: not at all 5. Poor appetite or overeating: not at all 6. Feeling bad about yourself - or that you are a failure or have let yourself or your family down: not at all 7. Trouble concentrating on things, such as reading the newspaper or watching television: not at all 8. Moving or speaking so slowly that other people could have noticed. Or the opposite - being so fidgety or restless that you have been moving around a lot more than usual: not at all 9. Thoughts that you would be better off or of hurting yourself in some way: not at all Total score: 0 Depression Screening Interpretation: Negative Depression Screening Done: Yes 58765 - PHQ-9 Billing: Yes Source: Developed by Drs. Renaldo Schuster, Katy Tobin, Dominic Monique and colleagues, with an educational henrique from [employer]. Thrive Questionnaire Date Thrive assessed: 03/12/24 I am a: Patient What is your living situation today?: I have a steady place to live Within the past 12 months, did the food you bought not last and you didn't have the money to get more?: Never true Within the past 12 months, did you worry whether your food would run out before you got money to buy more?: Never true Do you have trouble paying for medicines?: No Do you have trouble getting transportation to medical appointments?: No Do you have trouble paying your heating and electricity bill?: No Do you have trouble taking care of your child, family member or friend?: No Do you have trouble with day-to-day activities such as bathing, preparing meals, shopping, managing finances, etc.?: No Are you currently unemployed and looking for a job?: No Are you interested in more education?: No Please select the resources that you would like help with: None Currently or been in a relationship where the following occur: No concerns reported THRIVE Score: 0 AUDIT C Alcohol Use Questionnaire (AUDIT-C) 1. How often do you have a drink containing alcohol?: Never 3. How often do you have six or more drinks on one occasion?: Never Total Score: 0 Score Reviewed/Action Taken: Yes ALLAN-7 AMB Questionnaire ALLAN-7 Date ALLAN - 7 assessed: 03/12/24 Feeling nervous, anxious, or on edge: 0 = Not at all Not being able to stop or control worryin = Not at all Worrying too much about different things: 0 = Not at all Trouble relaxin = Not at all Being so restless that it is hard to sit still: 0 = Not at all Becoming easily annoyed or irritable: 0 = Not at all Feeling afraid as if something awful might happen: 0 = Not at all Total ALLAN-7 score (0-4 normal; 5-9 mild; 10-14 moderate; 15-21 severe): 0 Source: Developed by Drs. Renaldo Schuster, Katy Tobin, Dominic Monique and colleagues, with an educational henrique from [employer]. Review of Systems Const Denies chills, Denies fatigue, Denies fever(s) and Denies headache(s) ENT Denies dysphagia, Denies dizziness, Denies otalgia, Denies headache(s), Denies neck pain, Denies odynophagia and Denies sore throat Card Denies chest pain, Denies irregular heart rhythm, Denies palpitations and Denies dyspnea Resp Denies chest congestion, Denies cough and Denies dyspnea GI Denies abdominal pain, Denies constipation, Denies dysphagia, Denies heartburn, Denies diarrhea, Denies nausea, Denies odynophagia and Denies vomiting Denies difficulty urinating, Denies dysuria and Denies urinary frequency Musc Denies back pain, Denies arthralgias and Denies neck pain Skin/Breast Denies rash Neuro Denies dizziness, Denies headache(s) and Denies paresthesias Endo Denies fatigue and Denies palpitations Physical exam (Primary Care) Vital Signs: Last Vital Signs Pulse 71 03/12/24 12:38 BP 120/76 03/12/24 12:38 Pulse Ox 96 03/12/24 12:38 Oxygen Delivery Method Room Air 03/12/24 12:38 BMI result Body Mass Index 28.7 Tobacco/Smoking Status: Tobacco use Status Tobacco use date assessed 03/12/24 03/12/24 12:43 Patient Tobacco Use Status Never used Tobacco 03/12/24 12:43 e-Cigarette/Vaping Use Never Used 03/12/24 12:43 PHQ-9: PHQ-9 Score PHQ-9: Total score 0 03/12/24 12:52 Depression Screening Interpretation: Negative Thrive Assessment: Date of Thrive Assessment Date Thrive assessed 03/12/24 03/12/24 12:43 Currently or been in a relationship where the following occur: No concerns reported Const General: no acute distress and alert HENMT Ears: TM's normal bilaterally and EAC's normal Throat: Yes posterior oropharynx normal and Yes tonsils normal (no TP congestion) Neck Neck: Yes supple and No lymphadenopathy Thyroid: solitary palpable nodule on the right and nontender Resp Auscultation: clear to auscultation bilaterally, no rales and no wheezes Cardio Rate: regular rate Rhythm: regular rhythm Heart sounds: no murmurs GI Palpation (GI): Soft to palpation and nontender Auscultation: normal bowel sounds General: Yes no CVA tenderness Back/Spine/Pelvis Back: no CVA tenderness Thoracic/Lumbar Spine: No lumbar spinal tenderness Skin Rashes: no rashes Extrem General: Yes no clubbing, cyanosis or edema Coding Level of Care Code Est Pt Level 3 (86240) Diagnoses Mixed hyperlipidemia E78.2 Vitamin D deficiency E55.9 Elevated blood pressure reading R03.0 Right thyroid nodule E04.1 Overweight (BMI 25.0-29.9) E66.3 Additional Codes PHQ-9 - 66366 - PHQ-9 Billing: Yes ([id number]) Assessment & Plan Assessment & Plan (1) Mixed hyperlipidemia: Code(s): E78.2 - Mixed hyperlipidemia Category: Medical Plan: Patient was not able to get his follow-up labs done prior to his appointment today - states that he would try to get them done tomorrow morning Reinforced low cholesterol diet Will recheck his labs and fasting lipids in 6 months for follow up (2) Vitamin D deficiency: Code(s): E55.9 - Vitamin D deficiency, unspecified Category: Medical Plan: Continue Vitamin D3 1000 units QD (3) Elevated blood pressure reading: Code(s): R03.0 - Elevated blood-pressure reading, without diagnosis of hypertension Category: Medical Plan: His previous elevated blood pressure was most likely situational; his blood pressure in the office today is again normal Patient is reminded to check his blood pressure every now and then to verify that it stays normal (4) Right thyroid nodule: Code(s): E04.1 - Nontoxic single thyroid nodule Category: Medical Plan: Thyroid US done in November 2021 showed (+) small right thyroid nodule with no abnormalities TFTs were normal back then and were again normal on his labs done in September 2022 and more recently in July 2023 Will consider repeat thyroid US if nodule increases in size and becomes more palpable Will recheck his TFTs in 6 months (5) Overweight (BMI 25.0-29.9): Code(s): E66.3 - Overweight Category: Medical Plan: Reinforced diet/exercise as tolerated/lose weight Plan To return as scheduled in September 2024 for his next annual physical examination Orders: Orders Lipid Panel 09/01/24 E78.00 - Pure hypercholesterolemia, unspecified TSH reflex Free T4 09/01/24 E78.00 - Pure hypercholesterolemia, unspecified, Z00.00 - Encounter for general adult medical examination without abnormal findings Vitamin D 25-OH Total 09/01/24 E55.9 - Vitamin D deficiency, unspecified, Z00.00 - Encounter for general adult medical examination without abnormal findings Complete Blood Count Auto Diff 09/01/24 D64.9 - Anemia, unspecified Comprehensive [place]. Panel Fast 09/01/24 E78.00 - Pure hypercholesterolemia, unspecified UA CC w/rflx Micro + Cult 09/01/24 R30.0 - Dysuria, Z00.00 - Encounter for general adult medical examination without abnormal findings Prostate Specific Antigen Scr 09/01/24 Z00.00 - Encounter for general adult medical examination without abnormal findings
== END 2024-03-12 12:53 | disposition home or self-care (01) ==
PROVIDERS: PCP Internal Medicine; Visit Provider Internal Medicine
DX: E78.2 Mixed hyperlipidemia (principal); E55.9 Vitamin D deficiency, unspecified; R03.0 Elevated blood-pressure reading, without diagnosis of hypertension; E04.1 Nontoxic single thyroid nodule; E66.3 Overweight

== ENCOUNTER → 2024-03-12 12:30 | Outpatient (BNVA) | payer OTHER, SELFPAY | PROVIDERS: PCP Internal Medicine; Visit Provider Internal Medicine | DX: E78.2 Mixed hyperlipidemia (principal); E55.9 Vitamin D deficiency, unspecified; R03.0 Elevated blood-pressure reading, without diagnosis of hypertension; E04.1 Nontoxic single thyroid nodule; E66.3 Overweight | CPT/HCPCS: 96127; 99212 ==

== ENCOUNTER 2024-03-13 12:23 | Outpatient (REF) | payer OTHER, SELFPAY ==
[2024-03-13 13:55] LABS: Alanine Aminotransferase 52 U/L (0-40); Albumin Level 4.6 g/dL (3.5-5.0); Alkaline Phosphatase 76 U/L (39-117); Anion Gap 11 (12-20); Aspartate Amino Transferase 26 U/L (5-37); Bilirubin Total 1.3 mg/dL (0.0-1.0); Blood Urea Nitrogen 12 mg/dL (9-16); Calcium 10.1 mg/dL (8.4-10.2); Carbon Dioxide 28 mmol/L (22-29); Chloride 106 mmol/L (96-108); Cholesterol 184 mg/dL (<200); Estimated Glomerular Filt Rate > 60; Glucose Fasting 93 mg/dL (60-99); HDL Cholesterol 34 mg/dL (>40); LDL Cholesterol Calculated 110 mg/dL (<100); Potassium 4.2 mmol/L (3.3-5.1); Sodium 141 mmol/L (135-145); Triglycerides 203 mg/dL (<150)
== END 2024-03-13 12:24 | disposition home or self-care (01) ==
LOC: HO.LAB 12:23
PROVIDERS: PCP Internal Medicine; Visit Provider Internal Medicine
DX: E78.00 Pure hypercholesterolemia, unspecified (principal)
CPT/HCPCS: 36415; 80053; 80061

== ENCOUNTER 2024-10-22 09:30 | Outpatient (REF) | payer OTHER, SELFPAY ==
[2024-10-22 10:36] LABS: MANUAL DIFF FLAG NO
[2024-10-22 11:06] LABS: Hematocrit 43.1 % (42.0-52.0); Hemoglobin 14.0 g/dl (14.0-18.0); Imm Gran Abs Auto 0.04 X10*3/uL (0.00-0.03); Imm Gran Pct Auto 0.6 % (0.0-0.4); Lymphocytes Absolute Auto 2.0 X10*3/uL (1.2-4.9); Mean Corpuscular HGB Conc 32.5 g/dl (31.0-36.0); Mean Corpuscular Hemoglobin 26.8 pg (27.0-33.0); Mean Corpuscular Volume 82.4 fL (80.0-98.0); NRBC Abs Auto 0.000 X10*3/uL (0.0-0.012); NRBC Pct Auto 0.0 /100WBC (0.0-0.2); Platelet Count 260 X10*3/uL (160-400); Red Blood Count 5.23 X10*6/uL (4.60-5.80); White Blood Count 6.6 X10*3/uL (4.8-10.8)
[2024-10-22 11:43] LABS: Alanine Aminotransferase 71 U/L (0-40); Albumin Level 4.9 g/dL (3.5-5.0); Alkaline Phosphatase 88 U/L (39-117); Anion Gap 11 (12-20); Aspartate Amino Transferase 41 U/L (5-37); Blood Urea Nitrogen 14 mg/dL (9-16); Calcium 9.3 mg/dL (8.4-10.2); Carbon Dioxide 28 mmol/L (22-29); Chloride 105 mmol/L (96-108); Cholesterol 208 mg/dL (<200); Estimated Glomerular Filt Rate > 60; HDL Cholesterol 35 mg/dL (>40); Potassium 4.3 mmol/L (3.3-5.1); Sodium 140 mmol/L (135-145); Total Protein 8.2 g/dL (6.5-8.0); Triglycerides 298 mg/dL (<150)
[2024-10-26 07:38] LABS: Iodine, Serum/Plasma 50 mcg/L (52-109)
[2024-10-26 12:54] LABS: Triiodothyronine T3 Reverse 13 ng/dL (8-25)
== END 2024-10-22 09:31 | disposition home or self-care (01) ==
LOC: HO.LAB 09:30
PROVIDERS: PCP Internal Medicine
DX: Z00.00 Encounter for general adult medical examination without abnormal findings (principal); Z12.5 Encounter for screening for malignant neoplasm of prostate; E78.00 Pure hypercholesterolemia, unspecified; E55.9 Vitamin D deficiency, unspecified; E04.9 Nontoxic goiter, unspecified; R03.0 Elevated blood-pressure reading, without diagnosis of hypertension; E78.2 Mixed hyperlipidemia; E04.1 Nontoxic single thyroid nodule; D64.9 Anemia, unspecified; R74.01 Elevation of levels of liver transaminase levels; E66.3 Overweight; Z68.27 Body mass index [BMI] 27.0-27.9, adult; Z71.3 Dietary counseling and surveillance
CPT/HCPCS: 36415; 80053; 80061; 82306; 83789; 84153; 84443; 84480; 84481; 84482; 85025; 96127; 99396

== ENCOUNTER 2024-10-22 09:30 | Outpatient (AMB) | payer OTHER, SELFPAY ==
[2024-10-22 09:31] VITALS: BP 122/86; PULSE 68; RESP 18; TEMP 36.3; O2SAT 99; BMI 27.3
--- NOTE | 2024-10-22 09:31 | MHC.PC.OV ---
Vital Signs 10/22/24 09:31 Height 5 ft 10 in Weight 190 lb 6 oz BMI 27.3 BP 122/86 Blood Pressure Location Lt brachial Position Sitting Respiration 18 Pulse 68 Pulse Source Pulse Oximeter Temp 97.3 F Temp Source Temporal Artery Scan Pulse Oximetry (%) 99 Oxygen Delivery Method Room Air Intake Visit Reasons: annual exam Allergies No Known Drug Allergies Allergy (Unknown, Verified 10/22/24 09:39) Unknown Medication List - Last Reconciled 10/22/24 by SHAKIRA Chavez cholecalciferol (vitamin D3) (Vitamin D3) 25 mcg PO DAILY Tobacco use date assessed: 10/22/24 Dental Screening Dental Screen Date: 10/22/24 Did you have a dental visit in the last 12 months?: Yes Did you have a dental problem in the last 6 months where you did not have access to dental care?: No Was dental information given to patient?: Patient has dentist HPI annual exam HPI Details Dentist: up to date Eye: up to date Snellen: Right: Left: Corrected vision: yes, glasses STI screening: Colonoscopy: 2023, to be repeated in 3 years Pap Smer:n/a PHQ-9: Flu:Reports that he does not usually take the flu vaccine COVID: He never had any of the covid vaccines Tdap:Reports that he does not remember getting this-declines getting this today Diet:regular Exercise:Reports working sometimes, reports going for walks in the park The patient is a 49-year-old male presenting for a routine physical examination. He reports having undergone a colonoscopy last year, with a recommendation to repeat it in three years. He has had an eye examination within the past year and wears glasses for vision correction. The patient has also visited the dentist within the past year. He denies receiving the flu vaccine and has not had a COVID-19 vaccine. During the examination, thyroid enlargement was noted, and an ultrasound was ordered to assess for any changes. The patient denies any difficulty swallowing or other symptoms related to thyroid function. [facility] Medical History Tubular adenoma of colon Internal hemorrhoids without complication Diverticulosis Mixed hyperlipidemia Vitamin D deficiency Surgical History Hx of colonoscopy Family History Father No problems noted. Mother Diabetes Social History Housing: Apartment Alcohol intake: never Patient Tobacco Use Status: Never used Tobacco e-Cigarette/Vaping Use: Never Used Second Hand Smoke Exposure: No service: No Current occupational status: disabled Cognitive needs: No Hearing needs: No Vision needs: Yes (Glasses) Questionnaire PHQ-9 Over the last 2 weeks, how often have you been bothered by any of the following problems? 1. Little interest or pleasure in doing things: not at all 2. Feeling down, depressed, or hopeless: not at all 3. Trouble falling or staying asleep, or sleeping too much: not at all 4. Feeling tired or having little energy: not at all 5. Poor appetite or overeating: not at all 6. Feeling bad about yourself - or that you are a failure or have let yourself or your family down: not at all 7. Trouble concentrating on things, such as reading the newspaper or watching television: not at all 8. Moving or speaking so slowly that other people could have noticed. Or the opposite - being so fidgety or restless that you have been moving around a lot more than usual: not at all 9. Thoughts that you would be better off or of hurting yourself in some way: not at all Total score: 0 Depression Screening Interpretation: Negative Depression Screening Done: Yes 60138 - PHQ-9 Billing: Yes Source: Developed by Drs. Renaldo Schuster, Katy Tobin, Dominic Monique and colleagues, with an educational henrique from [employer]. Thrive Questionnaire Date Thrive assessed: 10/22/24 I am a: Patient What is your living situation today?: I have a steady place to live Within the past 12 months, did the food you bought not last and you didn't have the money to get more?: Never true Within the past 12 months, did you worry whether your food would run out before you got money to buy more?: Never true Do you have trouble paying for medicines?: No Do you have trouble getting transportation to medical appointments?: No Do you have trouble paying your heating and electricity bill?: No Do you have trouble taking care of your child, family member or friend?: No Do you have trouble with day-to-day activities such as bathing, preparing meals, shopping, managing finances, etc.?: No Are you currently unemployed and looking for a job?: No Are you interested in more education?: No Please select the resources that you would like help with: None Currently or been in a relationship where the following occur: No concerns reported THRIVE Score: 0 AUDIT C Alcohol Use Questionnaire (AUDIT-C) 1. How often do you have a drink containing alcohol?: Never 3. How often do you have six or more drinks on one occasion?: Never Total Score: 0 ALLAN-7 AMB Questionnaire ALLAN-7 Date ALLAN - 7 assessed: 10/22/24 Feeling nervous, anxious, or on edge: 0 = Not at all Not being able to stop or control worryin = Not at all Worrying too much about different things: 0 = Not at all Trouble relaxin = Not at all Being so restless that it is hard to sit still: 0 = Not at all Becoming easily annoyed or irritable: 0 = Not at all Feeling afraid as if something awful might happen: 0 = Not at all Total ALLAN-7 score (0-4 normal; 5-9 mild; 10-14 moderate; 15-21 severe): 0 Source: Developed by Drs. Renaldo Schuster, Katy Tobin, Dominic Monique and colleagues, with an educational henrique from [employer]. ALLAN-7 Assessment Billing ALLAN-7 Assessment Tool: ALLAN-7 Assessment 84760 Review of Systems Const Denies headache(s) Eyes Denies loss of vision ENT Denies vertigo, Denies dizziness, Denies headache(s) and Denies sore throat Card Denies chest pain, Denies leg edema and Denies lightheadedness Resp Denies cough, Denies hemoptysis and Denies wheezing GI Denies abdominal pain, Denies melena, Denies constipation, Denies diarrhea and Denies vomiting Denies dysuria, Denies urinary frequency and Denies urinary urgency Musc Denies arthralgias, Denies joint swelling, Denies numbness and Denies tingling Neuro Denies Abnormal speech present, Denies behavioral changes, Denies vertigo, Denies dizziness, Denies headache(s), Denies loss of vision, Denies memory loss, Denies numbness and Denies tingling Psych Denies anxiety, Denies behavioral changes, Denies depression, Denies memory loss and Denies panic attacks Efrain/Lymph Denies easy bleeding and Denies easy bruising Aller/Immun Denies wheezing Physical exam (Primary Care) Vital Signs: Last Vital Signs Temp 97.3 F 10/22/24 09:31 Pulse 68 10/22/24 09:31 Resp 18 10/22/24 09:31 BP 122/86 10/22/24 09:31 Pulse Ox 99 10/22/24 09:31 Oxygen Delivery Method Room Air 10/22/24 09:31 BMI result Body Mass Index 27.3 Tobacco/Smoking Status: Tobacco use Status Tobacco use date assessed 10/22/24 10/22/24 09:35 Patient Tobacco Use Status Never used Tobacco 10/22/24 09:35 e-Cigarette/Vaping Use Never Used 10/22/24 09:35 PHQ-9: PHQ-9 Score PHQ-9: Total score 0 10/22/24 09:41 Depression Screening Interpretation: Negative Thrive Assessment: Date of Thrive Assessment Date Thrive assessed 10/22/24 10/22/24 09:35 Currently or been in a relationship where the following occur: No concerns reported Const General: healthy appearing, no acute distress, alert and awake Nutritional Appearance: well nourished Orientation/consciousness: oriented to person, oriented to place and oriented to time HENMT Ears: TM's normal bilaterally General nose exam: Normal nasal mucous membranes and turbinates present Eyes Conjunctivae: conjunctivae normal Sclerae: sclerae normal Pupils: Equal, round and reactive pupils present Neck Neck: Yes no lymphadenopathy and Yes no JVD Thyroid: lateral enlargement Carotids: no bruits Resp Effort & Inspection: normal respiratory effort and not tachypneic Auscultation: no crackles, no rales, no rhonchi and no wheezes Cardio Rate: regular rate Rhythm: regular rhythm Heart sounds: no murmurs and normal S1 and S2 GI Palpation (GI): Soft to palpation, nontender, no hepatomegaly and no splenomegaly Auscultation: normal bowel sounds General: Yes no CVA tenderness Back/Spine/Pelvis Back: no CVA tenderness Skin General skin exam: no rashes or lesions noted and dry skin Neuro General: oriented to person, oriented to place and oriented to time Cranial nerves: Yes CN's II-XII intact bilaterally and Yes Equal, round and reactive pupils present Speech: No Abnormal speech present Gait exam (Neuro): Normal gait present Motor exam (neuro): 5/5 motor strength present throughout and no tremor noted Deep tendon reflexes (DTR's): Right triceps reflex intensity grade: 2+, Left triceps reflex intensity grade: 2+, Rt Biceps (C5, C6): 2+, Left biceps reflex intensity grade: 2+, Right brachioradialis reflex intensity grade: 2+, Left brachioradialis reflex intensity grade: 2+, Right patellar reflex intensity grade: 2+ and Left patellar reflex intensity grade: 2+ Extrem Right upper extremity: full ROM Left upper extremity: full ROM Right lower extremity: full ROM; no edema Left lower extremity: full ROM; no edema Psych Mental Status: mental status grossly normal Speech and movement: Normal speech and movement present Affect: normal affect Attitude: cooperative Thought process: Normal thought process present Coding Level of Care Code Est Pt Prev Care 40-64y(32646) Diagnoses Annual physical exam Z00.00 Elevated blood pressure reading R03.0 Mixed hyperlipidemia E78.2 Right thyroid nodule E04.1 Overweight (BMI 25.0-29.9) E66.3 Vitamin D deficiency E55.9 Elevated ALT measurement R74.01 Additional Codes ALLAN-7 Assessment Billing - ALLAN-7 Assessment Tool: ALLAN-7 Assessment 59985 ([id number]) PHQ-9 - 72226 - PHQ-9 Billing: Yes ([id number]) Time Spent (min) 38 Assessment & Plan Assessment & Plan (1) Annual physical exam: Code(s): Z00.00 - Encounter for general adult medical examination without abnormal findings Category: Medical Plan: Preventative guidelines reviewed with the patient. Encouraged the patient to go complete blood work that was preordered for this visit. (2) Elevated blood pressure reading: Code(s): R03.0 - Elevated blood-pressure reading, without diagnosis of hypertension Category: Medical Plan: Blood pressure 122/86 Reinforced low-sodium diet (3) Mixed hyperlipidemia: Code(s): E78.2 - Mixed hyperlipidemia Category: Medical Plan: On 03/13/2024 triglycerides was 203, total cholesterol 184, LDL 110 and HDL 34. Encouraged the patient to complete preordered blood work to re-evaluate. Reinforced low-cholesterol diet and activity as tolerated. (4) Right thyroid nodule: Code(s): E04.1 - Nontoxic single thyroid nodule Category: Medical Plan: Enlarged thyroid gland noted on exam. Chart review showed thyroid ultrasound done on 11/29/2021 showed a small right thyroid nodule. We will repeat ultrasound to make sure this has not gotten bigger. TFTs ordered as well. (5) Overweight (BMI 25.0-29.9): Code(s): E66.3 - Overweight Category: Medical Plan: Discussed lifestyle modifications including dietary changes and physical activity (6) Vitamin D deficiency: Code(s): E55.9 - Vitamin D deficiency, unspecified Category: Medical Plan: Continue vitamin D3 25 mcg daily (7) Elevated ALT measurement: Code(s): R74.01 - Elevation of levels of liver transaminase levels Category: Medical Plan: On 03/13/2024, ALT was 52. Patient will complete follow up labs to further evaluate this. Avoid high fat foods, alcohol intake and limit medications containing acetaminophen. Plan Follow up in six-month Orders: Orders Triiodothyronine T3 Free 10/22/24 E04.9 - Nontoxic goiter, unspecified Triiodothyronine T3 Reverse 10/22/24 E04.9 - Nontoxic goiter, unspecified Complete Blood Count Auto Diff 10/22/24 R03.0 - Elevated blood-pressure reading, without diagnosis of hypertension, E78.2 - Mixed hyperlipidemia, E78.00 - Pure hypercholesterolemia, unspecified, E04.1 - Nontoxic single thyroid nodule, E04.9 - Nontoxic goiter, unspecified, E55.9 - Vitamin D deficiency, unspecified Lipid Panel 10/22/24 R03.0 - Elevated blood-pressure reading, without diagnosis of hypertension, E78.2 - Mixed hyperlipidemia, E78.00 - Pure hypercholesterolemia, unspecified, E04.1 - Nontoxic single thyroid nodule, E04.9 - Nontoxic goiter, unspecified, E55.9 - Vitamin D deficiency, unspecified UA CC w/rflx Micro + Cult 10/22/24 R03.0 - Elevated blood-pressure reading, without diagnosis of hypertension, E78.2 - Mixed hyperlipidemia, E78.00 - Pure hypercholesterolemia, unspecified, E04.1 - Nontoxic single thyroid nodule, E04.9 - Nontoxic goiter, unspecified, E55.9 - Vitamin D deficiency, unspecified TSH reflex Free T4 10/22/24 R03.0 - Elevated blood-pressure reading, without diagnosis of hypertension, E78.2 - Mixed hyperlipidemia, E78.00 - Pure hypercholesterolemia, unspecified, E04.1 - Nontoxic single thyroid nodule, E04.9 - Nontoxic goiter, unspecified, E55.9 - Vitamin D deficiency, unspecified Vitamin D 25-OH Total 10/22/24 R03.0 - Elevated blood-pressure reading, without diagnosis of hypertension, E78.2 - Mixed hyperlipidemia, E78.00 - Pure hypercholesterolemia, unspecified, E04.1 - Nontoxic single thyroid nodule, E04.9 - Nontoxic goiter, unspecified, E55.9 - Vitamin D deficiency, unspecified Triiodothyronine T3 Total 10/22/24 E04.9 - Nontoxic goiter, unspecified Iodine, Serum/Plasma 10/22/24 E04.9 - Nontoxic goiter, unspecified Comprehensive [place]. Panel Fast 10/22/24 R03.0 - Elevated blood-pressure reading, without diagnosis of hypertension, E78.2 - Mixed hyperlipidemia, E78.00 - Pure hypercholesterolemia, unspecified, E04.1 - Nontoxic single thyroid nodule, E04.9 - Nontoxic goiter, unspecified, E55.9 - Vitamin D deficiency, unspecified US thyroid 10/22/24 E04.9 - Nontoxic goiter, unspecified
== END 2024-10-22 10:03 | disposition home or self-care (01) ==
LOC: HO.HMCH 09:30
PROVIDERS: PCP Internal Medicine
DX: Z00.00 Encounter for general adult medical examination without abnormal findings (principal); R03.0 Elevated blood-pressure reading, without diagnosis of hypertension; E78.2 Mixed hyperlipidemia; E04.1 Nontoxic single thyroid nodule; E66.3 Overweight; E55.9 Vitamin D deficiency, unspecified; R74.01 Elevation of levels of liver transaminase levels

== ENCOUNTER 2024-11-22 14:21 | Emergency (ER) | payer OTHER, SELFPAY ==
[2024-11-22 14:35] VITALS: BP 141/68; PULSE 81; RESP 16; TEMP 36.1; O2SAT 98; BMI 28.0
--- NOTE | 2024-11-22 14:40 | ED.GENADULT ---
HPI - General Adult General Chief complaint: Back Pain/Injury Stated complaint: L Side Back Pain Injury Time Seen by Provider: 11/22/24 14:38 Source: patient, RN notes reviewed and old records reviewed Mode of arrival: ambulatory Limitations: no limitations History of Present Illness ED Provider: Alice BARBER narrative: 49-year-old male presents for evaluation of left lower back pain. The pain started 2 days ago. He reports his pain started after he was lifting furniture. He has tried Aubrey-Silvestre and ibuprofen without any improvement. Denies any numbness, tingling, or radiation of his pain pain He had similar pain in the past that improved with [id number] medications. Denies any weakness to his legs, bladder or bowel incontinence Related Data Previous Rx's ?Medication ?Instructions ?Recorded cholecalciferol (vitamin D3) 25 25 mcg PO DAILY #90 caps 08/31/24 mcg (1,000 unit) capsule (Vitamin D3) cyclobenzaprine 10 mg tablet 10 mg PO TID PRN muscle spasm #20 11/22/24 tabs ibuprofen 600 mg tablet 600 mg PO Q6H PRN pain #20 tabs 11/22/24 Allergies Allergy/AdvReac Type Severity Reaction Status Date / Time No Known Drug Allergies Allergy Unknown Unknown Verified 11/22/24 14:37 Review of Systems Constitutional: Constitutional: Denies body ache(s), Denies chills and Denies fever(s) Musculoskeletal: Musculoskeletal: Reports back pain, Denies muscle cramps, Denies muscle weakness, Denies numbness, Denies radiating pain into limb, Reports stiffness and Denies tingling Neurologic: Denies numbness and Denies tingling Psychiatric: Psychiatric: Denies anxiety PMFSH Past Medical History Medical History Tubular adenoma of colon Internal hemorrhoids without complication Diverticulosis Mixed hyperlipidemia Vitamin D deficiency Surgical History Hx of colonoscopy Family History Family History Father No problems noted. Mother Diabetes Social History Social History Housing: Apartment Alcohol intake: never Patient Tobacco Use Status: Never used Tobacco e-Cigarette/Vaping Use: Never Used Second Hand Smoke Exposure: No Advance Directives: No Advance Directives Information Provided: Yes service: No Current occupational status: disabled Cognitive needs: No Hearing needs: No Vision needs: Yes (Glasses) Physical Exam ED Vital Signs: Vital Signs - 24 hr 11/22/24 14:35 Temperature 96.9 F Pulse Rate 81 Respiratory Rate 16 Blood Pressure 141/68 H Pulse Oximetry 98 Oxygen Delivery Method Room Air BMI result Body Mass Index 28.0 Const General: healthy appearing, comfortable, no acute distress, alert and awake Nutritional Appearance: well nourished Orientation/consciousness: patient oriented x3 HENMT Head: Yes normocephalic and Yes atraumatic Eyes Eyelids: Yes eyelids normal Conjunctivae: conjunctivae normal Sclerae: sclerae normal Corneas: corneas normal Pupils: Equal, round and reactive pupils present EOM: EOMs intact bilaterally Neck Neck: Yes full ROM Resp Effort & Inspection: normal respiratory effort, able to speak in complete sentences and not labored Cardio Rate: regular rate Rhythm: regular rhythm Back/Spine/Pelvis Other: There is tenderness to the left lumbosacral region. Straight leg raise negative on left. No lumbar vertebral tenderness. Skin General skin exam: no rashes or lesions noted and elasticity normal Neuro General: patient oriented x3 Cranial nerves: Yes Equal, round and reactive pupils present and Yes Bilaterally intact EOM present Cognition (Neuro): normal cognition Gait exam (Neuro): Normal gait present Motor exam (neuro): 5/5 motor strength present throughout Extrem Other: Moving all extremities well without any obvious deformities Medical Decision Making Medical Decision Making MDM Narrative: 49-year-old male presents for evaluation of left lower back pain after lifting a heavy object. He has no radiation of his pain, no numbness, tingling, weakness. No bladder or bowel incontinence. Bending there was no trauma x-ray was considered but ultimately deferred. Plan for symptomatic treatment with cyclobenzaprine and ibuprofen. Patient advised to rest Differential Diagnosis Differential Diagnoses: The differential diagnosis associated with the presentation includes Lumbar strain Back pain Muscle spasm Disc herniation Radiculopathy Cooper Sciatica Compression fracture Tests considered The following testing was considered but not selected: Consider lumbar spine x-ray but ultimately deferred Discharge Plan Discharge Clinical Impression: Low back strain Patient Disposition: Home, Self-Care Instructions: Low Back Strain (ED) Additional Instructions: Your exam is consistent with a muscle strain or spasm. I recommend avoiding heavy lifting or strenuous activity for the next 5-7 days. Use ibuprofen as needed for pain. You may use cyclobenzaprine as needed for muscle spasms. This may make you drowsy Do not drink alcohol or drive after taking Prescriptions: New cyclobenzaprine 10 mg tablet 10 mg PO TID PRN (Reason: muscle spasm) Qty: 20 0RF ibuprofen 600 mg tablet 600 mg PO Q6H PRN (Reason: pain) Qty: 20 0RF No Action cholecalciferol (vitamin D3) [Vitamin D3] 25 mcg (1,000 unit) capsule 25 mcg PO DAILY Qty: 90 3RF Discharge Date/Time: 11/22/24 14:55 Print Language: Congolese
== END 2024-11-22 14:55 | disposition home or self-care (01) ==
PROVIDERS: Emergency Provider Emergency Medicine; PCP Internal Medicine
DX: S39.012A Strain of muscle, fascia and tendon of lower back, initial encounter (principal); X50.0XXA Overexertion from strenuous movement or load, initial encounter; Y93.89 Activity, other specified; Y92.9 Unspecified place or not applicable
CPT/HCPCS: 99281; 99283

== ENCOUNTER 2024-12-26 09:39 | Outpatient (REF) | payer OTHER, SELFPAY ==
--- NOTE | ~2024-12-26 | US_ITS ---
EXAMINATION: US THYROID HISTORY: E04.9 - Nontoxic goiter, unspecified TECHNIQUE: Real-time grayscale ultrasound imaging was performed and images were reviewed. COMPARISON: Comparison is made with the prior examination dated 11/29/2021. FINDINGS: SIZE: The right thyroid lobe measures 3.8 x 1.4 x 1.5 cm. The left thyroid lobe measures 2.6 x 1.2 x 1.7 cm. The isthmus measures 2 mm. FLOW: Flow to the gland is normal. ECHOGENICITY: The echotexture of the gland is homogeneous. NODULES: Multiple tiny nodules are again noted as described below: Nodule #: 1 Location: Upper pole of the right thyroid lobe measuring 4 x 3 x 5 mm (previously 2 x 2 x 1 mm). Shape: Wider than tall (0 points) Margins: Smooth (0 points) Echotexture: Hypoechoic (2 points) Composition: Mostly solid (2 points) Calcifications: None (0 points) Total points: 4 TIRADS: TR4: Moderately suspicious. Nodule #: 2 Location: Lower pole of the right thyroid lobe measuring 3 x 2 x 3 mm (not seen previously). Shape: Wider than tall (0 points) Margins: Smooth (0 points) Echotexture: Hypoechoic (2 points) Composition: Solid (2 points) Calcifications: None (0 points) Total points: 4 TIRADS: TR4: Moderately suspicious. Nodule #: 3 Location: Lower pole of the left thyroid lobe measuring 3 x 1 x 3 mm (not seen previously. Shape: Wider than tall (0 points) Margins: Smooth (0 points) Echotexture: Hypoechoic (2 points) Composition: Solid (2 points) Calcifications: None (0 points) Total points: 4 TIRADS: TR4: Moderately suspicious. US/US thyroid IMPRESSION: Tiny bilateral thyroid nodules as described. According to ACR TI-RADS guidelines, no biopsy or follow-up is indicated. ACR TI-RADS Guidelines TR1 (0 points): Benign. No follow-up or biopsy required TR2 (2 points): Not Suspicious. No biopsy or follow up indicated TR3 (3 points): Mildly Suspicious. FNA if >= 2.5 cm, Follow if >= 1.5 cm TR4 (4-6 points): Moderately Suspicious. FNA if >= 1.5 cm, Follow if >= 1.0 cm TR5 (>=7 points): Highly Suspicious. FNA if >= 1.0 cm, Follow if >= 0.5 cm Electronically signed by: Renaldo Damon MD 12/26/2024 10:46 AM EDT
== END 2024-12-26 09:40 | disposition home or self-care (01) ==
LOC: HO.US 09:39
PROVIDERS: PCP Internal Medicine
DX: E04.9 Nontoxic goiter, unspecified (principal)
CPT/HCPCS: 76536

== ENCOUNTER → 2024-12-26 09:42 | Outpatient (BNV) | payer OTHER, SELFPAY | PROVIDERS: PCP Internal Medicine; Visit Provider Radiology Diagnostic Radiology | DX: E04.2 Nontoxic multinodular goiter (principal) | CPT/HCPCS: 76536 ==